=== PATIENT | male | born 1995 | race Caucasian/White ===

== ENCOUNTER 2021-07-06 01:41 | Emergency (ER) | payer SELFPAY ==
[2021-07-06 02:09] VITALS: BP 107/71; PULSE 53; TEMP 98.7; BMI 29.8
[2021-07-06] MEDS ORDERED: IBUPROFEN 600 MG TABLET (FP) PO ONE ×2 (03:09→03:28)
[2021-07-06] MEDS ORDERED: CYCLOBENZAPRINE HCL 5 MG TABLET PO ONE (04:16)
[2021-07-06] MEDS ORDERED: CYCLOBENZAPRINE HCL 5 MG TABLET ONE (04:18)
== END 2021-07-06 05:28 | disposition home or self-care (01) ==
LOC: JER 01:41
DX: R07.81 Pleurodynia (principal)
CPT/HCPCS: 71046-TC-FY; 71101-TC-RT-FY; 73030-TC-RT-FY; 99284-25

== ENCOUNTER 2022-12-22 05:56 | Emergency (ER) | payer OTHER ==
[2022-12-22 06:06] VITALS: BP 137/84; PULSE 59; RESP 18; TEMP 97.7; BMI 29.0
[2022-12-22] MEDS ORDERED: LACTATED RINGERS SOLUTION 1000 ML INFUS.BAG IV ONE (06:40)
[2022-12-22 06:49] LABS: EPI CELLS 3 /uL (0-25.1); HYALINE CASTS 0 /uL (0-3.1); PH,URINE 5.5 (5.0-8.0); URINE APPEARANCE CLEAR; URINE BACTERIA 2 /uL (0-1359); URINE BILIRUBIN NEGATIVE (NEGATIVE); URINE COLOR YELLOW; URINE GLUCOSE (UA) NEGATIVE (NEGATIVE); URINE KETONE NEGATIVE (NEGATIVE); URINE LEUK ESTERASE NEGATIVE (NEGATIVE); URINE NITRITE NEGATIVE (NEGATIVE); URINE PROTEIN TRACE (NEGATIVE); URINE RBC 165 /uL (0-23.9); URINE WBC 11 /uL (0-25.8)
[2022-12-22 07:09] LABS: BASO % 0.7 % (0-2.0); EOS % 1.5 % (0-4.5); HEMATOCRIT 41.5 % (35.4-49); HEMOGLOBIN 14.4 GM/dL (11.7-16.9); MCH 26.9 pg (25.7-33.7); MCHC 34.7 g/dl (32.0-35.9); MEAN CELL VOLUME 77.6 fl (80-96); MEAN PLT VOLUME 7.6 fl (7.5-11.1); MONO % 8.5 % (3.8-10.2); NEUT % 73.3 % (42.8-82.8); PLATELET COUNT 246 10^3/uL (134-434); RBC 5.35 M/mm3 (4.00-5.60); RDW 13.7 % (11.9-15.9); WHITE BLOOD COUNT 9.6 K/mm3 (4.0-10.0)
[2022-12-22 07:41] LABS: POTASSIUM 4.2 mmol/L (3.5-5.1)
[2022-12-22 07:44] LABS: CALCIUM 8.6 mg/dL (8.5-10.1)
[2022-12-22 07:45] LABS: ALBUMIN 3.9 g/dl (3.4-5.0); BLOOD UREA NITROGEN 13.9 mg/dL (7-18)
[2022-12-22 07:49] LABS: CREATININE 1.1 mg/dL (0.55-1.3)
[2022-12-22 07:50] LABS: TOT PROT 7.4 g/dl (6.4-8.2)
[2022-12-22 07:51] LABS: BILIRUBIN,TOTAL 0.6 mg/dL (0.2-1)
[2022-12-22] MEDS ORDERED: KETOROLAC TROMETHAMINE 15 MG/ML VIAL IVPUSH ONE (11:17)
== END 2022-12-22 12:05 | disposition home or self-care (01) ==
LOC: EDBD 05:56 → JER 05:56
DX: R10.32 Left lower quadrant pain (principal); R11.0 Nausea; N50.812 Left testicular pain; R30.0 Dysuria
CPT/HCPCS: 36415; 74176-TC; 76870-TC; 80053; 81003; 85025; 87086; 99284-25